=== PATIENT | male | born 2000 | race Caucasian/White ===

== ENCOUNTER 2022-02-02 18:28 | Emergency (ER) | payer OTHER, SELFPAY ==
[2022-02-02 18:36] VITALS: BP 118/68; PULSE 60; RESP 18; TEMP 36.9; O2SAT 100
--- NOTE | 2022-02-02 18:53 | ED.MALEGU ---
HPI - Male Genitourinary General Chief complaint: Urogenital-Male Stated complaint: poss uti Time Seen by Provider: 02/02/22 18:48 Source: patient, RN notes reviewed and old records reviewed Mode of arrival: ambulatory Limitations: no limitations History of Present Illness HPI Narrative: 21 year old male presents to [facility] with complaints of urinary burning,urgency, urinary meatus itching,urine dark and odorous and some white discharge. Patient reports that his last sexual encounter was 2 months ago with use of condom. Patient has history of back pain but states also some increase in his discomfort, denies any CVA tenderness. Patient states that he would like to be tested for STD but does not want treatment today, will come back if treatment is needed. MD Complaint: penile discharge and dysuria Onset (ago): day(s) (2) Related Data Allergies Allergy/AdvReac Type Severity Reaction Status Date / Time lactose AdvReac Diarrhea Verified 02/02/22 19:30 Review of Systems Review of Systems: CONSTITUTIONAL: Denies fever, chills, or sweats. EYES: Denies visual changes, redness, or discharge. ENT: Denies rhinorrhea, congestion, sore throat, or otalgia. CARDIOVASCULAR: Denies chest pain, palpitations, or pressure RESPIRATORY: Denies cough or dyspnea. GASTROINTESTINAL: Denies abdominal pain, nausea, vomiting, or diarrhea. GENITOURINARY: Positive for dysuria no visible hematuria, odorous urine,white discharge and some itching at meatus SKIN: Denies rash or itching. MUSCULOSKELETAL: Positive for lower back pain, joint pain, or myalgia. NEUROLOGIC: Denies headache, numbness, or weakness. PSYCHIATRIC: Denies anxiety or depression. All systems reviewed & are unremarkable except as noted in HPI and below PMFSH Past Medical History Medical History (Updated 02/04/22 @ 10:53 by Nayely Grande NP) ADHD (attention deficit hyperactivity disorder) Ear infection Lactose intolerance Surgical History Surgical History (Updated 02/04/22 @ 10:55 by Nayely Grande NP) History of placement of ear tubes as child Family History Family History (Updated 02/04/22 @ 10:52 by Nayely Garnde NP) Other Diabetes mellitus Social History Social History (Updated 02/04/22 @ 10:47 by Nayely Grande NP) Smoking status: Current every day smoker Tobacco type: e-cigarettes/vaping Living arrangements: with family Gender identity (if verbalized by the patient): Male Comments At time of signature, agree with nursing past medical, surgical, social and family history. There is no relevant family history pertinent to the presenting complaint Exam Narrative: GENERAL: Well-appearing, well-nourished, and in no acute distress. HEAD: Normocephalic, atraumatic. EYES: PERRLA and EOMI. ENT: Nares clear, no rhinorrhea or epistaxis. Mucous membranes moist.TM's normal, throat pink with no lesions or exudates or tonsil swelling NECK: Supple.no lymphadenopathy CHEST: Clear to auscultation. No respiratory distress.SAO2 100% on room air HEART: Regular rate and rhythm. No murmur heard. Normal peripheral pulses. ABDOMEN: Soft, nontender, nondistended, normal active bowel sounds.Urinary symptoms of burning odorous urine, discharge and itching at meatus, no CVA tenderness on examination EXTREMITIES: Normal range of motion. No edema. SKIN: Warm, dry, no rash. NEURO: No focal deficits. Alert and oriented x3. Course Course Level of Care: Express Care Visit Vital Signs Vital signs: Vital Signs Temperature 36.9 C 02/02/22 18:36 Pulse Rate 60 02/02/22 18:36 Respiratory Rate 18 02/02/22 18:36 Blood Pressure 118/68 02/02/22 18:36 Pulse Oximetry 100 02/02/22 18:36 Oxygen Delivery Room Air 02/02/22 18:36 Temperature 36.9 C 02/02/22 18:36 Pulse Rate 60 02/02/22 18:36 Respiratory Rate 18 02/02/22 18:36 Blood Pressure 118/68 02/02/22 18:36 Pulse Oximetry 100 02/02/22 18:36 Oxygen Delivery Room Air 02/02/22 18:3
== END 2022-02-02 19:15 | disposition home or self-care (01) ==
PROVIDERS: Emergency Provider Registered Nurse
DX: N39.0 Urinary tract infection, site not specified (principal); Z11.3 Encounter for screening for infections with a predominantly sexual mode of transmission; F17.290 Nicotine dependence, other tobacco product, uncomplicated
CPT/HCPCS: 81003; 87086; 87491; 87591; 87661; 99213; G0463

== ENCOUNTER 2022-02-21 14:00 | Outpatient (CLI) | payer OTHER, SELFPAY ==
[2022-02-21 19:01] LABS: Basophils Percent Auto 0.3 % (0.2-1.2); Eosinophils Absolute Auto 0.1 K/mm3 (0-0.3); Eosinophils Percent Auto 0.9 % (0-4.4); Hematocrit 44.5 % (42.0-52.0); Hemoglobin 14.7 g/dL (14.0-18.0); Immature Granulocyte Absolute 0.02 K/mm3 (0.00-0.031); Immature Granulocyte Percent A 0.2 % (0-0.5); Lymphocytes Absolute Auto 1.22 K/mm3 (0.9-3.2); Lymphocytes Percent Auto 14.2 % (18.3-44.2); Mean Corpuscular Hemoglobin 27.9 pg (26-34); Mean Corpuscular Volume 84.6 fl (80-100); Mean Platelet Volume 12.2 fl (7.4-10.4); Monocytes Absolute Auto 0.5 K/mm3 (0.1-0.6); Monocytes Percent Auto 5.5 % (2.6-8.5); Neutrophils Absolute Auto 6.8 K/mm3 (1.3-6.7); Neutrophils Percent Auto 78.9 % (45.5-73.1); Platelet Count Result 237 k/mm3 (150-375); Red Blood Count 5.26 M/mm3 (4.6-6.20); Red Cell Distribution Width 13.1 % (11.5-14.5); White Blood Count 8.6 K/mm3 (4.5-10.0)
[2022-02-21 20:14] LABS: Alanine Aminotransferase 24 U/L (6-50); Albumin Level 5.3 g/dL (3.5-5.1); Alkaline Phosphatase 83 U/L (38-126); Anion Gap 14 mmol/L (8-16); Aspartate Amino Transferase 61 U/L (17-59); Bilirubin,Total 1.1 mg/dL (0.2-1.3); Blood Urea Nitrogen 10 mg/dL (9-20); Calcium 9.8 mg/dL (8.4-10.2); Carbon Dioxide 28 mmol/L (22-30); Chloride 101 mmol/L (98-107); Cholesterol 126 mg/dL (0-200); Estimated Glomerular Filt Rate > 60; Glucose 77 mg/dL (65-110); HDL Direct 35 mg/dL; Potassium 3.9 mmol/L (3.4-5.0); Sodium 143 mmol/L (137-145); Triglycerides 72 mg/dL (<150)
[2022-02-21 20:25] LABS: LDL Cholesterol Direct 62 mg/dL
[2022-02-21 20:40] LABS: Thyroid Stimulating Hormone 0.829 uIU/mL (0.465-4.680)
== END 2022-02-21 14:01 | disposition home or self-care (01) ==
LOC: ANHBWCLAB 14:02
PROVIDERS: PCP Family Medicine; Visit Provider Family Medicine
DX: Z00.00 Encounter for general adult medical examination without abnormal findings (principal); F90.9 Attention-deficit hyperactivity disorder, unspecified type; F41.9 Anxiety disorder, unspecified
CPT/HCPCS: 36415; 80053; 80061; 84443; 85025

== ENCOUNTER 2022-05-30 14:16 | Outpatient (CLI) | payer MEDICAID, SELFPAY ==
[2022-05-30 20:14] LABS: Alanine Aminotransferase 52 U/L (6-50); Albumin Level 5.1 g/dL (3.5-5.1); Alkaline Phosphatase 60 U/L (38-126); Aspartate Amino Transferase 48 U/L (17-59)
[2022-05-30 20:26] LABS: Hepatitis B Surface Antigen Negative (Negative)
[2022-05-30 20:32] LABS: HAV RESULT Negative (Negative); Hepatitis B Core IgM Result Negative (Negative)
[2022-05-30 20:44] LABS: Hepatitis C Virus Antibody Negative (Negative)
== END 2022-05-30 14:17 | disposition home or self-care (01) ==
LOC: ANHBWCLAB 14:17
PROVIDERS: PCP Family Medicine; Visit Provider Family Medicine
DX: R74.8 Abnormal levels of other serum enzymes (principal)
CPT/HCPCS: 36415; 80074; 80076

== ENCOUNTER 2022-08-21 12:43 | Emergency (ER) | payer MEDICAID, SELFPAY ==
[2022-08-21 12:48] VITALS: BP 138/94; PULSE 69; RESP 16; TEMP 36.6; O2SAT 100
--- NOTE | 2022-08-21 13:15 | ED.DENTAL ---
HPI - Dental/Oral General Chief complaint: Dental/Oral Stated complaint: Toothache Source: patient and RN notes reviewed History of Present Illness HPI Narrative: 22-year-old male presents to urgent care with complaints of bilateral upper dental pain. Patient states the right-sided has been hurting him for almost a year and the left side has been bothering him for approximately 1 month. Patient has been told in the past that he has infection in these areas and that he cannot get dental work done until the infections are resolved. Patient states he was vomiting yesterday but that has resolved. Patient denies any fevers, chills, chest pain, or shortness of breath. Related Data Allergies Allergy/AdvReac Type Severity Reaction Status Date / Time lactose AdvReac Diarrhea Verified 05/30/22 13:56 dryer sheets Allergy Mild Unknown Uncoded 05/30/22 13:56 Mosquitos Allergy Unknown Unknown Uncoded 05/30/22 13:56 Review of Systems Review of Systems: CONSTITUTIONAL: Denies fever, chills, or sweats. EYES: Denies visual changes, redness, or discharge. ENT: Denies otalgia and sore throat; reports bilateral upper mouth pain CARDIOVASCULAR: Denies chest pain, palpitations, or edema. RESPIRATORY: Denies cough or dyspnea. GASTROINTESTINAL: Denies abdominal pain, nausea, vomiting, or diarrhea. GENITOURINARY: Denies dysuria or hematuria. SKIN: Denies rash or itching. MUSCULOSKELETAL: Denies back pain, joint pain, or myalgia. NEUROLOGIC: Denies headache, numbness, or weakness. [facility] Past Medical History Medical History (Updated 08/21/22 @ 13:15 by Vijaya Yañez APRN) ADHD (attention deficit hyperactivity disorder) Ear infection Lactose intolerance Surgical History Surgical History (Updated 02/21/22 @ 11:28 by Warner Perez MD) History of placement of ear tubes as child Family History Family History (Updated 02/21/22 @ 13:34 by Callie Santiago MA) Father Depression Mother Hypertension Depression Sibling Asthma Depression Grandparent Hypertension Heart disease Grandparent Diabetes mellitus Cancer Social History Social History (Updated 05/30/22 @ 13:51 by Callie Santiago MA) Smoking status: Current every day smoker Tobacco type: e-cigarettes/vaping Alcohol intake: current Substance use: current Lack of Transportation: YES Lack of Food: Never True Current Housing: I Have Housing Concerned About Future Housing: No Difficulty Paying Gas/Electric Bills: No Difficulty Paying for Meds: YES Currently Unemployed: No Education: High School Diploma/GED Difficulty w/ Childcare or Family Care: No Living arrangements: with family Occupation/Education: occupation Additional occupation/education comments: [employer] Gender identity (if verbalized by the patient): Male Agree to blood products: Yes Comments At the time of my signature, I reviewed and agree with the nursing past medical, surgical, social, and family history. There is no relevant family history pertinent to the patient complaint. Exam Narrative: GENERAL: This is a well-nourished, well-developed patient, in no apparent distress. HEAD: normocephalic, atraumatic. EYES: PERRL. Sclera clear/white. Vision is grossly intact. MOUTH: Erythemic gums noted, various broken teeth noted. No significant swelling or abscess appreciated EARS: External ears normal, auditory canals clear and without drainage, TMs normal without perforation. Hearing grossly intact. NOSE: External nose normal with no obvious nasal discharge, nares without redness, no rhinorrhea. THROAT: Mucous membranes moist, posterior pharynx clear. NECK: Neck supple, non-tender without lymphadenopathy, masses or thyromegaly. CARDIOVASCULAR: Regular rate and rhythm without murmurs, gallops, or rubs. RESPIRATORY: Clear to auscultation. Breath sounds equal bilaterally. No wheezes, rales, or rhonchi. SKIN: warm, intact with no suspicious lesions or rash, good
== END 2022-08-21 13:25 | disposition home or self-care (01) ==
PROVIDERS: Emergency Provider Nurse Practitioner Family; PCP Family Medicine
DX: K08.89 Other specified disorders of teeth and supporting structures (principal); F17.290 Nicotine dependence, other tobacco product, uncomplicated
CPT/HCPCS: 99213; G0463

== ENCOUNTER 2022-12-11 13:30 | Outpatient (CLI) | payer MEDICAID, SELFPAY ==
[2022-12-11 19:39] LABS: Appearance Urine Cloudy (Clear); Bacteria Urine None Seen /hpf; Bilirubin Urine Negative (Negative); Color Urine Yellow (Yellow); Glucose Urine UA Negative (Negative); Ketones Urine Negative (Negative); Leukocyte Esterase Ur 3+ LEU/UL (NEGATIVE); Nitrate Urine Negative (Negative); Non Pathogenic Casts 0-2; Protein Urine Negative (Negative); RBC Urine 0-2 /hpf (0-2); Squamous Epithelial Cell Urine None seen /hpf (Few); Urobilinogen Urine 0.2 mg/dL (<2.0); WBC Urine >100 /hpf (0-3); pH Urine 7.5 (5.0-9.0)
[2022-12-11 19:43] LABS: Add Urine Microscopic? YES
== END 2022-12-11 13:31 | disposition home or self-care (01) ==
LOC: ANHBWCLAB 13:30
PROVIDERS: PCP Family Medicine; Visit Provider Nurse Practitioner Adult Health
DX: R39.9 Unspecified symptoms and signs involving the genitourinary system (principal); R36.9 Urethral discharge, unspecified
CPT/HCPCS: 81001; 87086; 87491; 87591

== ENCOUNTER 2023-07-01 15:44 | Outpatient (CLI) | payer OTHER, SELFPAY ==
[2023-07-01 20:18] LABS: Chlamydia trachomatis NOT DETECTED (NOT DETECTE); Neisseria gonorrhoeae PCR NOT DETECTED (NOT DETECTE)
[2023-07-01 20:53] LABS: Trichomonas Vag PCR NOT DETECTED (NOT DETECTE)
== END 2023-07-01 15:45 | disposition home or self-care (01) ==
LOC: ANHBWCLAB 15:47
PROVIDERS: PCP Nurse Practitioner Adult Health; Visit Provider Nurse Practitioner Adult Health
DX: Z72.51 High risk heterosexual behavior (principal)
CPT/HCPCS: 87491; 87591; 87661

== ENCOUNTER 2023-08-13 14:18 | Outpatient (CLI) | payer BC, SELFPAY ==
--- NOTE | ~2023-08-13 | XR_ITS ---
EXAMINATION: XR abdomen/kub 1V DATE: 08/13/2023 14:54 INDICATION: Right abdominal pain. Constipation. TECHNIQUE: A supine view of the abdomen on 2 radiographs was obtained. COMPARISON: None. FINDINGS: There are no dilated loops of bowel. There is a moderate volume of stool in the colon. A ca lcification in left pelvis is likely a phlebolith. IMPRESSION: 1. Nonobstructive bowel gas pattern. Reviewed, dictated and finalized at location E. M TECHNICIAN
== END 2023-08-13 14:19 | disposition home or self-care (01) ==
LOC: ANHIMG 14:43
PROVIDERS: PCP Family Medicine; Visit Provider Nurse Practitioner Family
DX: K59.00 Constipation, unspecified (principal)
CPT/HCPCS: 74018

== ENCOUNTER 2024-02-12 15:27 | Outpatient (CLI) | payer BC, SELFPAY ==
--- NOTE | ~2024-02-12 | XR_ITS ---
EXAMINATION: XR thoracic spine 3V, XR lumbar spine 2-3V DATE: 02/12/2024 15:45 INDICATION: Low back pain TECHNIQUE: 1. One AP, lateral and lateral swimmer's views of the thoracic spine were obtained. 2. AP, lateral and cone-down lateral lumbosacral views of the lumbar spine were obtained. COMPARISON: None. FINDINGS: Thoracic spine: 7 degree thoracic dextrocurvature. Sagittal alignment is normal. Minimal anterior wedging at T5. Disc heights are normal. Paravertebral soft tissues are unremarkable. Visualized portions of the lungs ar e clear with no pleural effusion or pneumothorax. Heart size is normal. Lumbar spine: 4 mm retrolisthesis L5 on S1. Vertebral body heights are normal. Mild disc height loss at L5-S1. Bila teral hip and significantly joint spaces are relatively preserved. IMPRESSION: 1. 7 degree thoracic dextrocurvature with minimal anterior wedging at T5. 2. 4 mm retrolisthesis L5 on S1 with mild associated disc height loss. Reviewed, dictated and finalized at location A. IMPRESSION: 1. 7 degree thoracic dextrocurvature with minimal anterior wedging at T5. 2. 4 mm retrolisthesis L5 on S1 with mild associated disc height loss.
== END 2024-02-12 15:28 | disposition home or self-care (01) ==
LOC: ANHBWCIMG 15:29
PROVIDERS: PCP Nurse Practitioner Adult Health; Visit Provider Nurse Practitioner Adult Health
DX: M54.50 Low back pain, unspecified (principal); M41.84 Other forms of scoliosis, thoracic region; M43.17 Spondylolisthesis, lumbosacral region; M48.54XA Collapsed vertebra, not elsewhere classified, thoracic region, initial encounter for fracture
CPT/HCPCS: 72072; 72100

== ENCOUNTER 2024-02-13 15:49 | Outpatient (CLI) | payer BC, SELFPAY ==
--- NOTE | ~2024-02-13 | XR_ITS ---
[id number] INDICATION: Neck pain TECHNIQUE: 4 views of the cervical spine. FINDINGS: No prior studies for comparison. The cervical spine is visualized to the cervicothoracic junction. There is no prevertebral soft tiss ue swelling, listhesis, or loss of vertebral body height. Intervertebral disc spaces are normal. Th e osseous central canal is patent. No displaced cervical spine fractures are identified. IMPRESSION: 1. No acute osseous abnormality of the cervical spine. Reviewed, dictated and finalized at location B.
== END 2024-02-13 15:50 | disposition home or self-care (01) ==
LOC: ANHBWCIMG 15:50
PROVIDERS: PCP Nurse Practitioner Adult Health; Visit Provider Nurse Practitioner Adult Health
DX: M54.50 Low back pain, unspecified (principal)
CPT/HCPCS: 72040

== ENCOUNTER 2024-12-14 15:32 | Outpatient (CLI) | payer OTHER, SELFPAY ==
[2024-12-14 21:17] LABS: Trichomonas Vag PCR NOT DETECTED (NOT DETECTE)
[2024-12-14 21:43] LABS: Chlamydia trachomatis NOT DETECTED (NOT DETECTE); Neisseria gonorrhoeae PCR NOT DETECTED (NOT DETECTE)
== END 2024-12-14 15:33 | disposition home or self-care (01) ==
LOC: ANHBWCLAB 15:35
PROVIDERS: PCP Nurse Practitioner Adult Health; Visit Provider Nurse Practitioner Adult Health
DX: R36.9 Urethral discharge, unspecified (principal)
CPT/HCPCS: 87491; 87591; 87661

== ENCOUNTER 2024-12-16 10:34 | Outpatient (CLI) | payer OTHER, SELFPAY ==
[2024-12-16 19:51] LABS: Syphilis IgG/IgM Antibody Non-Reactive (Nonreactive)
[2024-12-16 20:11] LABS: HIV 1/2 Ab P24 Ag Result Negative (Negative)
== END 2024-12-16 10:35 | disposition home or self-care (01) ==
PROVIDERS: PCP Nurse Practitioner Adult Health; Visit Provider Nurse Practitioner Adult Health
DX: Z72.51 High risk heterosexual behavior (principal)
CPT/HCPCS: 36415; 86593; 86703; G0432

== ENCOUNTER 2024-12-17 14:55 | Outpatient (CLI) | payer OTHER, SELFPAY | END 2024-12-17 14:56 | disposition home or self-care (01) | LOC: ANHBWCLAB 14:56 | PROVIDERS: PCP Nurse Practitioner Adult Health; Visit Provider Nurse Practitioner Adult Health | DX: R39.9 Unspecified symptoms and signs involving the genitourinary system (principal) | CPT/HCPCS: 87086 ==